=== PATIENT | male | born 1965 | race Hispanic/Latino ===

== ENCOUNTER 2021-05-19 22:44 | Emergency (ER) | payer SELFPAY ==
[2021-05-19] MEDS ORDERED: Calcium Chloride 1 GM/10 ML Abboject SYRINGE ONE (22:47)
[2021-05-19] MEDS ORDERED: EPINEPHrine 1 MG/10 ML Abboject SYRINGE ONE (22:47)
== END 2021-05-19 22:54 | disposition expired ==
LOC: ERS 22:44
DX: I46.9 Cardiac arrest, cause unspecified (principal)
CPT/HCPCS: 92950; 96374; 96375; J0171